=== PATIENT | male | born 1985 | race Two or more races ===

== ENCOUNTER 2018-10-29 13:33 | Inpatient (IN) | payer OTHER ==
[~2018-10-29] VITALS: Ht 160 cm; Wt 79.0 kg
[2018-10-29 14:01] LABS: Basophils # (auto) 0 uL; Basophils % (auto) 0.5 % (0.0-2.0); Eosinophils # (auto) 0 uL; Eosinophils % (auto) 0.5 % (0.0-7.0); Hematocrit 46.5 % (41.0-53.0); Hemoglobin 16.3 g/dL (13.5-17.5); Lymphocytes # (auto) 1.8 uL; Lymphocytes % (auto) 25.8 % (10.0-50.0); Mean Corpuscular Hemoglobin 30.9 pg (28.0-32.0); Mean Corpuscular Volume 88.3 fL (80.0-100.0); Monocytes # (auto) 0.4 uL; Neutrophils # (auto) 4.7 uL; Neutrophils % (auto) 68.2 % (37.0-80.0); Platelet Count (auto) 277 10^3/uL (140-450); Red Blood Cells 5.27 10^6/uL (4.5-5.90); Red Cell Distribution Width 13.1 % (11.8-14.3)
[2018-10-29 14:16] LABS: Albumin 4.1 g/dL (3.4-5.0); Anion Gap 7 (5-15); Blood Urea Nitrogen 12 mg/dL (7-18); Calcium 8.9 mg/dL (8.5-10.1); Carbon Dioxide 25 mmol/L (21-32); Chloride 108 mmol/L (98-107); Glucose 134 mg/dL (74-106); Magnesium 2.6 mg/dL (1.6-2.6); Potassium 3.7 mmol/L (3.5-5.1); Sodium 140 mmol/L (136-145)
[2018-10-29 14:21] LABS: Alanine Aminotransferase 51 U/L (16-61); Alkaline Phosphatase 102 U/L (45-117); Aspartate Aminotransferase 22 U/L (15-37); Bilirubin, Total 0.4 mg/dL (0.2-1.0); GFR African American 121 mL/min; GFR Non-African American 100 mL/min; Total Protein 8.4 g/dL (6.4-8.2)
[2018-10-29] MEDS ORDERED: ASPirin 81 mg TAB PO ONE (15:15)
[2018-10-29 16:44] LABS: INR 0.93 (0.9-1.15); Partial Thromboplastin Time 29.8 sec (23.64-32.05)
[2018-10-29] MEDS ORDERED: NITROGLYCERIN 0.4 MG SL TAB SL PRN (17:45)
[2018-10-29] MEDS ORDERED: MORPHINE SULF INJ 2 MG/ML SYRINGE 1ML IV PRN (17:45)
[2018-10-29 20:17] VITALS: BP 128/78
--- NOTE | 2018-10-29 20:17 | NUR ---
Telemetry admit from [facility] admitted to Telemetry unit; no SBAR received. Accompanied by prision guards. Patient oriented by SYL LOGAN, primary RN, to unit, room, bed, and unit policies regarding patient care. Patient now on continuous telemetry monitoring, tele box #16, and telemetry reading on arrival to unit is sinus tachycardia. Patient not requiring oxygen, weighed by bedscale and encouraged to call if he needs something. All questions and concerns addressed, patient verbalized understanding. Bed low. HOB in semi-Mosley's position. Call light within pt's reach.
[2018-10-30 05:00] VITALS: BP 91/48
--- NOTE | 2018-10-30 07:40 | NUR ---
Opening Shift Note Assumed care of patient, awake, alert and oriented x4 . No S/S of distress/SOB Patient c/o abdominal pain 07/30. Bed at lowest locked position side rails up x2 and call light within reach. Instructed on POC and to call for assist PRN, will continue to monitor for changes Q1hr and PRN. Guards at bedside.
[2018-10-30 08:00] VITALS: BP 122/49
[2018-10-30 09:00] VITALS: BP 112/69
--- NOTE | 2018-10-30 12:45 | NUR ---
Dr. Deshaun Bishop at bedside.
[2018-10-30 13:00] VITALS: BP 112/71
--- NOTE | 2018-10-30 13:00 | NUR ---
Patient has been educated on NPO status for abdomen ultrasound. Patient verbalized understanding.
--- NOTE | 2018-10-30 14:35 | NUR ---
Patient c/o weakness and fatigue. patients VS are as follows: BP 117/73, HR 83, SPO2 97%, T 98.3
[2018-10-30 14:57] LABS: Albumin 3.8 g/dL (3.4-5.0); Calcium 9.1 mg/dL (8.5-10.1); Potassium 3.9 mmol/L (3.5-5.1)
[2018-10-30 15:01] LABS: BUN/Creatinine Ratio 16.3; Bilirubin, Total 0.7 mg/dL (0.2-1.0)
[2018-10-30 17:00] VITALS: BP 126/79
--- NOTE | 2018-10-30 19:10 | NUR ---
Patient sitting up in bed c/o feeling hungry and weak. Patient scheduled for ABD Ultrasound at 20:30. Patient aware. Educated patient to ask for assistance when getting out of bed. Patient verbalized understanding. Bed at lowest locked position and call light within reach. Care endorsed to KIRBY RN.
--- NOTE | 2018-10-30 19:30 | NUR ---
Opening Shift Note Assumed care of patient, awake and alert. Pt is shackled to bed by halfway guards. No S/S of distress/SOB or pain, but pt c/o being hungry and wanting to eat. With assist in interpreting by guard, this RN instructed pt re. need to cont without food or drink as still awaiting US of abd to be done. Thi RN also instructed on POC and to call for assist PRN, will continue to monitor for changes Q1hr and PRN.
[2018-10-30 22:00] VITALS: BP 122/83
[2018-10-30] MEDS: SUCRALFATE 1 GM/10 ML ORAL SUSP GT SCH (23:28)
[2018-10-31 05:00] VITALS: BP 100/68
[2018-10-31] MEDS: SUCRALFATE 1 GM/10 ML ORAL SUSP GT SCH ×4 (07:09→21:56)
--- NOTE | 2018-10-31 07:40 | NUR ---
Opening Shift Note Assumed care of patient, awake, alert and oriented x4. Pt is shackled to bed by longterm guards. No S/S of distress/SOB or pain. Bed at lowest locked position, side rails up x2 and call light within reach. Instructed patient on POC and to call for assist PRN, will continue to monitor for changes Q1hr and PRN.
[2018-10-31 07:48] VITALS: BP 124/85
[2018-10-31] MEDS: PANTOPRAZOLE 40 MG TAB PO SCH (08:44)
[2018-10-31 09:00] VITALS: BP 125/85
--- NOTE | 2018-10-31 11:30 | NUR ---
Rounds Patient is comfortably laying in bed. C/o feeling weak. Otherwise no s/s of distress/SOB.
[2018-10-31 13:00] VITALS: BP 118/79
[2018-10-31 17:54] VITALS: BP 125/84
--- NOTE | 2018-10-31 19:00 | NUR ---
OPEN SHIFT NOTE PATIENT IS ALERT AND ORIENTED X4, ON ROOM AIR, 20 GAUGE IN THE RIGHT AC IS INTACT AND PATENT. PATIENT HAS TWO OFFICERS AT BEDSIDE. POC DISCUSSED WITH PATIENT AND QUESTIONS ANSWERED. BED IS LOCKED IN LOWEST POSITION WITH SIDE RAILS UP X2 FOR SAFETY. CALL LIGHT IS WITHIN REACH AND PATIENT ENCOURAGED TO CALL IF NEEDS ANYTHING. WILL CONTINUE TO ROUND Q1HR AND PRN.
--- NOTE | 2018-10-31 19:09 | NUR ---
Closing shift: Patient comfortably laying in bed. Bed at lowest locked position and call light within reach. Patient shackled to bed. Guards at bedside. No c/o pain, no s/s of distress/sob stated. Care endorsed to NOC RN.
[2018-10-31 22:00] VITALS: BP 122/83
[2018-11-01 05:00] VITALS: BP 112/79
[2018-11-01] MEDS: SUCRALFATE 1 GM/10 ML ORAL SUSP GT SCH ×4 (06:35→21:41)
--- NOTE | 2018-11-01 08:00 | NUR ---
OPENING SHIFT NOTE ASSUMED CARE OF PATIENT. ALERT AND ORIENTED X4 WITH NO SIGNS OF DISTRESS. LUNG SOUNDS CLEAR ON ROOM AIR. 20G IV IN RIGHT AC IS INTACT AND PATENT. 22G IV WAS STARTED IN LEFT FOREARM AND IS INTACT AND PATENT. CALL LIGHT WITHIN REACH AND INSTRUCTED TO CALL FOR ASSISTANCE. 2 GUARDS AT BEDSIDE. WILL CONTINUE TO MONITOR.
--- NOTE | 2018-11-01 08:10 | NUR ---
IV START 22G IV WAS STARTED IN LEFT FOREARM AND IS INTACT AND PATENT.
[2018-11-01] MEDS ORDERED: ADENOSINE 66 MG in GIVE UN-DILUTED 0 ML IV STA (08:11)
[2018-11-01 08:54] VITALS: BP 144/84
[2018-11-01 09:45] VITALS: BP 141/100
[2018-11-01] MEDS: PANTOPRAZOLE 40 MG TAB PO SCH (11:15)
[2018-11-01 13:00] VITALS: BP 108/74
[2018-11-01 17:00] VITALS: BP 118/81
[2018-11-01 22:21] VITALS: BP 121/75
[2018-11-02 05:15] VITALS: BP 115/79
[2018-11-02] MEDS: SUCRALFATE 1 GM/10 ML ORAL SUSP GT SCH ×3 (06:44→17:00)
[2018-11-02 09:00] VITALS: BP 112/81
[2018-11-02] MEDS: PANTOPRAZOLE 40 MG TAB PO SCH (10:50)
[2018-11-02] MEDS ORDERED: ONDANSETRON HCL 4 MG/2 ML VIAL IV PRN (11:30)
[2018-11-02 13:00] VITALS: BP 116/80
[2018-11-02 17:00] VITALS: BP 110/72
[2018-11-02 19:55] VITALS: BP 110/72
[2018-11-02 20:15] VITALS: BP 110/72
--- NOTE | 2018-11-02 21:30 | NUR ---
Discharge instructions given as ordered. Encourage to follow up with [facility]D at [facility] as instructed. All questions and concerns addressed. Patient verbalized understanding. No medications ordered. IVs removed with catheter intact, pressure dressing applied. Telemetry unit returned to ICU. Patient taken to vehicle via wheelchair with all personal belongings, accompanied by guards. No distress noted at time of departure.
== END 2018-11-02 21:20 | DRG 392 ==
LOC: ER 13:38 → EEVIPCON 13:38 → TELE 13:39 → TELE-EAST 20:17
PROVIDERS: ADMIT Specialist; ATTEND Internal Medicine
DX: K21.9 Gastro-esophageal reflux disease without esophagitis (principal); E66.9 Obesity, unspecified; I10 Essential (primary) hypertension; Z68.30 Body mass index [BMI] 30.0-30.9, adult; Z82.49 Family history of ischemic heart disease and other diseases of the circulatory system; Z87.891 Personal history of nicotine dependence; Z79.899 Other long term (current) drug therapy
CPT/HCPCS: 36415; 71045; 76705; 78452; 80053; 82150; 83690; 83735; 84443; 84484; 85025; 85379; 85610; 85730; 93017; G0378; J0153; J2405